=== PATIENT | female | born 2000 | race Hispanic/Latino ===

== ENCOUNTER 2019-01-03 22:13 | Emergency (ER) | payer OTHER ==
[2019-01-03 23:05] LABS: BASOPHILS % 0.3 % (0.0-1.0); EOSINOPHILS # (AUTO) 0.2 (0.0-0.4); EOSINOPHILS % 1.8 % (0.0-6.0); HEMATOCRIT 38.5 % (34.2-44.1); HEMOGLOBIN 12.9 g/dL (12.0-16.0); LYMPHOCYTES # (AUTO) 3.3 (1.0-3.2); LYMPHOCYTES % 30.9 % (18.0-39.1); MEAN CORPUSCULAR HEMOGLOBIN 27.9 pg (28-32); MEAN CORPUSCULAR HGB CONC 33.5 g/dL (31-35); MEAN CORPUSCULAR VOLUME 83.2 fL (81-99); MONOCYTES # (AUTO) 0.6 (0.2-0.8); NEUTROPHILS # (AUTO) 6.4 (2.1-6.9); NEUTROPHILS % 60.7 % (38.7-80.0); PLATELET COUNT 333 x10e3/uL (140-360); RED BLOOD COUNT 4.63 x10e6/uL (3.6-5.1); RED CELL DISTRIBUTION WIDTH 14.3 % (11.7-14.4)
[2019-01-03 23:22] LABS: CLARITY,URINE CLOUDY (CLEAR); COLOR,URINE AMBER (YELLOW); LEUKOCYTE ESTERASE ,URINE TRACE (NEGATIVE); NITRITE,URINE NEGATIVE (NEGATIVE); PROTEIN,URINE DIPSTICK 1+ (NEGATIVE)
[2019-01-03 23:23] LABS: BILIRUBIN,URINE NEGATIVE (NEGATIVE); KETONES,URINE NEGATIVE (NEGATIVE); URINE UROBILINOGEN 0.2 mg/dL (0.2 - 1)
[2019-01-03 23:28] LABS: ALANINE AMINOTRANSFERASE 24 IU/L (0-55); ALBUMIN 3.7 g/dL (3.5-5.0); ALKALINE PHOSPHATASE 89 IU/L (40-150); ANION GAP 13.4 mmol/L (8-16); BLOOD UREA NITROGEN 9 mg/dL (7-26); BUN/CREATININE RATIO 11 (6-25); CALCIUM 8.9 mg/dL (8.4-10.2); CARBON DIOXIDE 22 mmol/L (22-29); CHLORIDE 105 mmol/L (98-107); EST GLOMERULAR FILTRATION RATE > 60 ML/MIN (60-); GLUCOSE 70 mg/dL (74-118); POTASSIUM 3.4 mmol/L (3.5-5.1); SODIUM 137 mmol/L (136-145)
[2019-01-03 23:31] LABS: BACTERIA,URINE MODERATE /HPF; EPITHELIAL CELLS,URINE FEW /LPF; MUCUS,URINE MODERATE (RARE); RBC,URINE >50 /HPF (0-5)
[2019-01-03 23:34] LABS: HCG,QUANTITATIVE 9.05 mIU/mL (0-10)
[2019-01-04 00:26] VITALS: BP 111/76
== END 2019-01-04 00:38 | disposition home or self-care (01) ==
LOC: ER 22:13
DX: O20.0 Threatened abortion (principal); O23.11 Infections of bladder in pregnancy, first trimester; N30.91 Cystitis, unspecified with hematuria
CPT/HCPCS: 36415; 80053; 81001; 82948; 84702; 85025; 99283

== ENCOUNTER 2019-01-22 01:19 | Emergency (ER) | payer OTHER ==
[~2019-01-22] VITALS: Ht 157.5 cm; Wt 77.1 kg
[2019-01-22 01:28] VITALS: BP 135/94
== END 2019-01-22 01:33 | disposition home or self-care (01) ==
LOC: ER 01:19
DX: M54.2 Cervicalgia (principal); S16.1XXA Strain of muscle, fascia and tendon at neck level, initial encounter; S00.83XA Contusion of other part of head, initial encounter; Y04.2XXA Assault by strike against or bumped into by another person, initial encounter; J45.909 Unspecified asthma, uncomplicated
CPT/HCPCS: 99283

== ENCOUNTER 2020-02-20 18:40 | Emergency (ER) | payer MEDICARE, OTHER ==
[~2020-02-20] VITALS: Ht 157.5 cm; Wt 77.1 kg
--- OUTSIDE RECORDS SUMMARY | 2020-02-20 18:43 | XMS REPORT ---
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 Allergies, Adverse Reactions, Alerts Allergy Name Allergy Type Status Severity Reaction(s) Onset Date Inactive Date Treating Clinician Comments No Known Allergies DA Active U 2019-05-30 00:00:00 No Known Allergies DA Active U 2016-01-19 00:00:00 Medications This patient has no known medications. Results Test Description Test Time Test Comments Text Results Atomic Results Result Comments - XR CHEST 2 V 2019-05-30 22:08:00 FAX: Isabella Muñoz DO [place]: B St: REG Name: [facility] : 2000 Age/S: 18/F [address] Unit #: [id number] Loc: [place] [address] Phys: Isabella Muñoz DO Acct: [id number] Dis Date: Status: REG ER PHONE #: [phone] Exam Date: 05/30/20192137 FAX #: [phone] Reason: CHEST PAIN EXAMS: CPT CODE: [id number] XR CHEST 2 V [id number] REASON FOR EXAM: CHEST PAIN Exam Order Date: 05/30/2019 9:23 PM Ordering Juan Alberto: Isabella Muñoz DO PROCEDURE: - XR CHEST 2 V COMPARISON: FINDINGS: PA and lateral views of the chest show clear lungs without evidence of consolidation. No evidence of effusion. The heart size is within normal limits. Pulmonary vasculatures are unremarkable. The osseous structures are grossly intact. IMPRESSION: No active disease. at 2208 Reported and signed by: Parish Samuels M.D. CC: Isabella Muñoz DO Technologist: RAMONA ALLRED Trnscrd Date/Time/By: 05/30/2019 (2207) : By: Jyoti Orig Print D/T: S: 05/30/2019 (8274) PAGE 1 Signed Report THYROID STIMULATING HORMONE 2019-05-30 22:04:00 THYROID STIMULATING HORMONE (test code=TSH) 1.900 uIU/mL 0.36-3.74 TSH REFERENCE RANGES: EUTHYROID: 0.35 - 4.3 mIU/mL HYPO : > 5.5 mIU/mL HYPER : < 0.35 mIU/mL BASIC METABOLIC [id number] 21:57:00* Test Item Value Reference Range Comments SODIUM (test code=NA) mmol/L 136-145 POTASSIUM (test code=K) mmol/L 3.5-5.1 CHLORIDE (test code=CL) mmol/L 98-107 CARBON DIOXIDE (test code=CO2) mmol/L 21-32 ANION GAP (test code=GAP) 10-20 GLUCOSE (test code=GLU) mg/dL 74-106 BLOOD UREA NITROGEN (test code=BUN) mg/dL 7-18 GLOMERULAR FILTRATION RATE (test code=GFR) mL/min >=60 CREATININE (test code=CREAT) mg/dL 0.55-1.02 BUN/CREATININE RATIO (test code=BUN/CREA) 10-20 CALCIUM (test code=CA) mg/dL 8.5-10.1 HCG SERUM [id number] 21:57:00* Test Item Value Reference Range Comments HCG SERUM QUAL (test code=HCGQL) NEGATIVE NEGATIVE This HCGQL test is NOT applicable for MALE patients.Check with nurse about probable order error.If Tumor Marker Test needed, nurse should order test "HCGTU"(Test #550.21648) BASIC METABOLIC [id number] 21:57:00* Test Item Value Reference Range Comments SODIUM (test code=NA) 139 mmol/L 136-145 POTASSIUM (test code=K) 3.1 mmol/L 3.5-5.1 CHLORIDE (test code=CL) 107.0 mmol/L 98-107 CARBON DIOXIDE (test code=CO2) 22.0 mmol/L 21-32 ANION GAP (test code=GAP) 13.1 10-20 GLUCOSE (test code=GLU) 106 mg/dL 74-106 BLOOD UREA NITROGEN (test code=BUN) 10 mg/dL 7-18 GLOMERULAR FILTRATION RATE (test code=GFR) > 60 mL/min >=60 Estimated GFR by using Modified MDRD formula.Chronic kidney disease is defined as either kidney damageor GFR <60 mL/min/1.73 m2 for >3 months. CREATININE (test code=CREAT) 1.10 mg/dL 0.55-1.02 Note change in reference range due to change in reagent. BUN/CREATININE RATIO (test code=BUN/CREA) 9.1 10-20 CALCIUM (test code=CA) 9.3 mg/dL 8.5-10.1 HCG SERUM [id number] 21:57:00* Test Item Value Reference Range Comments HCG SERUM QUAL (test code=HCGQL) NEGATIVE NEGATIVE This HCGQL test is NOT applicable for MALE patients.Check with nurse about probable order error.If Tumor Marker Test needed, nurse should order test "HCGTU"(Test #550.24779) CBC W/O [id number] 21:41:00* Test Item Value Reference Range Comments WHITE BLOOD CELL (test code=WBC) 11.3 K/mm3 4.5-12.5 RED BLOOD CELL (test code=RBC) 4.73 mill/mm3 3.7-5.2 HEMOGLOBIN (test code=HGB) 12.8 gram/dL 11.5-15.5 HEMATOCRIT (test code=HCT) 39.8 % 36.0-46.0 MEAN CELL VOLUME (test code=MCV) 84.1 fL 80-98 MEAN CELL HGB (test code=MCH) 27.1 picogram 27.0-33.0 MEAN CELL HGB CONCETRATION (test code=MCHC) 32.2 gram/dL 33.0-36.0 RED CELL DISTRIBUTION WIDTH (test code=RDW) 14.1 % 11.6-16.2 PLATELET COUNT (test code=PLT) 319 K/mm3 150-450 MEAN PLATELET VOLUME (test code=MPV) 10.7 fL 6.7-11.0 CBC W/O [id number] 21:41:00* Test Item Value Reference Range Comments WHITE BLOOD CELL (test code=WBC) 11.3 K/mm3 4.5-12.5 RED BLOOD CELL (test code=RBC) 4.73 mill/mm3 3.7-5.2 HEMOGLOBIN (test code=HGB) 12.8 gram/dL 11.5-15.5 HEMATOCRIT (test code=HCT) 39.8 % 36.0-46.0 MEAN CELL VOLUME (test code=MCV) 84.1 fL 80-98 MEAN CELL HGB (test code=MCH) 27.1 picogram 27.0-33.0 MEAN CELL HGB CONCETRATION (test code=MCHC) 32.2 gram/dL 33.0-36.0 RED CELL DISTRIBUTION WIDTH (test code=RDW) 14.1 % 11.6-16.2 PLATELET COUNT (test code=PLT) 319 K/mm3 150-450 MEAN PLATELET VOLUME (test code=MPV) 10.7 fL 6.7-11.0 CBC W/O [id number] 21:41:00* Test Item Value Reference Range Comments WHITE BLOOD CELL (test code=WBC) 11.3 K/mm3 4.5-12.5 RED BLOOD CELL (test code=RBC) 4.73 mill/mm3 3.7-5.2 HEMOGLOBIN (test code=HGB) 12.8 gram/dL 11.5-15.5 HEMATOCRIT (test code=HCT) 39.8 % 36.0-46.0 MEAN CELL VOLUME (test code=MCV) 84.1 fL 80-98 MEAN CELL HGB (test code=MCH) 27.1 picogram 27.0-33.0 MEAN CELL HGB CONCETRATION (test code=MCHC) 32.2 gram/dL 33.0-36.0 RED CELL DISTRIBUTION WIDTH (test code=RDW) 14.1 % 11.6-16.2 PLATELET COUNT (test code=PLT) 319 K/mm3 150-450 MEAN PLATELET VOLUME (test code=MPV) 10.7 fL 6.7-11.0 CBC W/O [id number] 21:39:00* Test Item Value Reference Range Comments WHITE BLOOD CELL (test code=WBC) K/mm3 4.5-12.5 RED BLOOD CELL (test code=RBC) mill/mm3 3.7-5.2 HEMOGLOBIN (test code=HGB) 12.8 gram/dL 11.5-15.5 HEMATOCRIT (test code=HCT) 39.8 % 36.0-46.0 MEAN CELL VOLUME (test code=MCV) fL 80-98 MEAN CELL HGB (test code=MCH) picogram 27.0-33.0 MEAN CELL HGB CONCETRATION (test code=MCHC) gram/dL 33.0-36.0 RED CELL DISTRIBUTION WIDTH (test code=RDW) % 11.6-16.2 PLATELET COUNT (test code=PLT) K/mm3 150-450 MEAN PLATELET VOLUME (test code=MPV) fL 6.7-11.0 CBC W/O [id number] 21:39:00* Test Item Value Reference Range Comments WHITE BLOOD CELL (test code=WBC) K/mm3 4.5-12.5 RED BLOOD CELL (test code=RBC) mill/mm3 3.7-5.2 HEMOGLOBIN (test code=HGB) 12.8 gram/dL 11.5-15.5 HEMATOCRIT (test code=HCT) 39.8 % 36.0-46.0 MEAN CELL VOLUME (test code=MCV) fL 80-98 MEAN CELL HGB (test code=MCH) picogram 27.0-33.0 MEAN CELL HGB CONCETRATION (test code=MCHC) gram/dL 33.0-36.0 RED CELL DISTRIBUTION WIDTH (test code=RDW) % 11.6-16.2 PLATELET COUNT (test code=PLT) K/mm3 150-450 MEAN PLATELET VOLUME (test code=MPV) fL 6.7-11.0 CBC W/O [id number] 21:39:00* Test Item Value Reference Range Comments WHITE BLOOD CELL (test code=WBC) K/mm3 4.5-12.5 RED BLOOD CELL (test code=RBC) mill/mm3 3.7-5.2 HEMOGLOBIN (test code=HGB) 12.8 gram/dL 11.5-15.5 HEMATOCRIT (test code=HCT) 39.8 % 36.0-46.0 MEAN CELL VOLUME (test code=MCV) fL 80-98 MEAN CELL HGB (test code=MCH) picogram 27.0-33.0 MEAN CELL HGB CONCETRATION (test code=MCHC) gram/dL 33.0-36.0 RED CELL DISTRIBUTION WIDTH (test code=RDW) % 11.6-16.2 PLATELET COUNT (test code=PLT) K/mm3 150-450 MEAN PLATELET VOLUME (test code=MPV) fL 6.7-11.0
--- NOTE | 2020-02-20 21:11 | Diagnostic Imaging Report ---
EXAMINATION: CHEST 2 VIEWS INDICATION: ^chest pain . shield abdomen COMPARISON: None FINDINGS: PA and lateral views TUBES and LINES: None. LUNGS: Lungs are well inflated. There is no evidence of pneumonia or pulmonary edema. PLEURA: No pleural effusion or pneumothorax. HEART AND MEDIASTINUM: The cardiomediastinal silhouette is unremarkable. BONES AND SOFT TISSUES: No acute osseous lesion. Soft tissues are unremarkable. UPPER ABDOMEN: No free air under the diaphragm. IMPRESSION: No acute thoracic abnormality. Signed by: Juan Henry MD on 02/20/2020 9:08 PM
[2020-02-20 21:48] VITALS: BP 117/72
== END 2020-02-20 21:52 | disposition home or self-care (01) ==
LOC: ER 18:40
DX: O26.92 Pregnancy related conditions, unspecified, second trimester (principal); R07.89 Other chest pain; V43.62XA Car passenger injured in collision with other type car in traffic accident, initial encounter; Y92.488 Other paved roadways as the place of occurrence of the external cause; J45.909 Unspecified asthma, uncomplicated
CPT/HCPCS: 71046; 99283

== ENCOUNTER 2022-05-06 22:29 | Emergency (ER) | payer OTHER ==
[~2022-05-06] VITALS: Ht 157.5 cm; Wt 77.1 kg
[2022-05-06 23:28] LABS: BASOPHILS % 0.4 % (0.0-1.0); EOSINOPHILS # (AUTO) 0.2 (0.0-0.4); EOSINOPHILS % 1.9 % (0.0-6.0); HEMATOCRIT 37.5 % (34.2-44.1); HEMOGLOBIN 12.1 g/dL (12.0-16.0); LYMPHOCYTES # (AUTO) 3.2 (1.0-3.2); MEAN CORPUSCULAR HEMOGLOBIN 28.4 pg (28-32); MEAN CORPUSCULAR HGB CONC 32.3 g/dL (31-35); MONOCYTES # (AUTO) 0.7 (0.2-0.8); NEUTROPHILS # (AUTO) 6.6 (2.1-6.9); NEUTROPHILS % 61.5 % (38.7-80.0); PLATELET COUNT 322 x10e3/uL (140-360); RED BLOOD COUNT 4.26 x10e6/uL (3.6-5.1); RED CELL DISTRIBUTION WIDTH 14.2 % (11.7-14.4)
[2022-05-06 23:47] LABS: ALBUMIN 3.9 g/dL (3.5-5.0); ANION GAP 15.6 mmol/L (8-16); CALCIUM 8.9 mg/dL (8.4-10.2); CREATININE, SERUM 0.82 mg/dL (0.57-1.11); POTASSIUM 3.6 mmol/L (3.5-5.1)
[2022-05-07 00:11] LABS: CLARITY,URINE CLEAR (CLEAR); COLOR,URINE YELLOW (YELLOW); KETONES,URINE NEGATIVE (NEGATIVE); LEUKOCYTE ESTERASE ,URINE SMALL (NEGATIVE); NITRITE,URINE NEGATIVE (NEGATIVE); PROTEIN,URINE DIPSTICK NEGATIVE (NEGATIVE)
[2022-05-07 00:12] LABS: URINE UROBILINOGEN 0.2 mg/dL (0.2 - 1)
[2022-05-07 00:18] LABS: BACTERIA,URINE FEW /HPF; EPITHELIAL CELLS,URINE FEW /LPF; RBC,URINE 0-5 /HPF (0-5)
[2022-05-07] MEDS ORDERED: IOPAMIDOL 370 MG/ML 100 ML INFUS..BTL INJ ONE (00:22)
[2022-05-07 02:17] VITALS: BP 111/71
== END 2022-05-07 02:19 | disposition home or self-care (01) ==
LOC: ER 22:40
DX: R10.12 Left upper quadrant pain (principal)
CPT/HCPCS: 36415; 74177; 80053; 81001; 83690; 84702; 85025; 99284; Q9967